=== PATIENT | female | born 1990 | race Hispanic/Latino ===

== ENCOUNTER 2018-06-08 18:29 | Emergency (ER) | payer OTHER ==
[2018-06-08 19:19] VITALS: RESP 18; TEMP 98.2
[2018-06-08 19:20] VITALS: O2SAT 100
[2018-06-08] MEDS ORDERED: Tdap Vaccine 0.5 ml Vial (10-64 yrs) IM ONE ×2 (19:41→20:10)
--- NOTE | 2018-06-08 20:54 | ED PDOC ---
HPI: Head Injury Time Seen by Provider: 06/08/18 19:25 Chief Complaint (Nursing): Dizziness/Lightheaded Chief Complaint (Provider): head injury Additional Complaint(s): Fell down stairs yesterday around 9pm. Injured bilateral forearms/elbows and thinks she hit head. Having poor concentration, headache, lightheadedness, feeling "in a fog", photophobia today. PMD Priamini Past Medical History Reviewed: Historical Data, Nursing Documentation, Vital Signs Vital Signs: Last Vital Signs Temp 98.2 F 06/08/18 19:13 Pulse 68 06/08/18 19:13 Resp 18 06/08/18 19:13 BP 120/82 06/08/18 19:13 Pulse Ox 100 06/08/18 19:13 - Medical History PMH: No Chronic Diseases - Surgical History Surgical History: Appendectomy - Family History Family History: States: No Known Family Hx - Social History Current smoker - smoking cessation education provided: Yes Alcohol: Social - Allergies Allergies/Adverse Reactions: Allergies Allergy/AdvReac Type Severity Reaction Status Date / Time No Known Allergies Allergy Verified 06/08/18 19:13 Review of Systems ROS Statement: Except As Marked, All Systems Reviewed And Found Negative (and as per HPI) Constitutional: Positive for: Malaise Cardiovascular: Positive for: Light Headedness Gastrointestinal: Negative for: Nausea Musculoskeletal: Negative for: Neck Pain Neurological: Positive for: Confusion, Headache, Dizziness. Negative for: Numbness, Incoordination, Change in Speech Physical Exam - Reviewed Nursing Documentation Reviewed: Yes Vital Signs Reviewed: Yes - Physical Exam Appears: Positive for: Non-toxic, No Acute Distress Head Exam: Positive for: ATRAUMATIC, NORMOCEPHALIC Skin: Positive for: Warm, Dry Eye Exam: Positive for: EOMI, PERRL. Negative for: Nystagmus ENT: Positive for: Pharynx Is (clear) Neck: Positive for: Painless ROM, Supple Cardiovascular/Chest: Positive for: Regular Rate, Rhythm. Negative for: Murmur Respiratory: Positive for: Normal Breath Sounds. Negative for: Wheezing Gastrointestinal/Abdominal: Positive for: Soft. Negative for: Tenderness Back: Positive for: Normal Inspection. Negative for: Decreased ROM Extremity: Positive for: Normal ROM. 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 Negative for: Motor/Sensory Deficits - ECG O2 Sat by Pulse Oximetry: 100 - Progress ED Course And Treament: EXAM: CT Head without Intravenous Contrast. CLINICAL HISTORY: DIZZ/HEADACHE TRAUMA TECHNIQUE: Axial computed tomography images of the head/brain without intravenous contrast. 824.30 mGy-cm COMPARISON: None provided. FINDINGS: BRAIN No acute intraparenchymal hemorrhage. No mass lesion. No CT evidence for acute territorial infarct. No midline shift or extra-axial collections. VENTRICLES: No hydrocephalus. ORBITS: The orbits are unremarkable. SINUSES AND MASTOIDS: Mild inflammatory changes ethmoid sinuses. BONES: No fracture. SOFT TISSUES: Unremarkable. IMPRESSION: No acute intracranial abnormality. Electronically signed on Jun 08, 2018 8:53:21 PM EST by: Shlomo Wilkes M.D., Certified by [facility], Diagnostic Radiology Disposition - Clinical Impression Clinical Impression: Concussion Counseled Patient/Family Regarding: Studies Performed, Diagnosis, Need For Followup - Disposition Referrals: Lyubov Lopez MD [Medical Doctor] - (FOLLOW UP WITH DR LOPEZ IN A WEEK) Disposition: Routine/Home Disposition Time: 21:02 Condition: STABLE Instructions: Concussion, Adult (DC) Forms: [facility] ED School/Work Excuse
[2018-06-08 21:19] VITALS: BP 124/67; PULSE 70
--- NOTE | 2018-06-09 11:06 | CT ---
Date of service: 06/08/2018 PROCEDURE: CT HEAD WITHOUT CONTRAST. HISTORY: dizzy headache trauma COMPARISON: Not available TECHNIQUE: Axial computed tomography images were obtained through the head/brain without intravenous contrast. Radiation dose: Total exam DLP = 824.3 mGy-cm. This CT exam was performed using one or more of the following dose reduction techniques: Automated exposure control, adjustment of the mA and/or kV according to patient size, and/or use of iterative reconstruction technique. FINDINGS: HEMORRHAGE: No intracranial hemorrhage. BRAIN: No mass effect or edema. No atrophy or chronic microvascular ischemic changes. VENTRICLES: Unremarkable. No hydrocephalus. CALVARIUM: Unremarkable. PARANASAL SINUSES: Chronic ethmoid and sphenoid sinusitis. Hypoplastic frontal sinuses. MASTOID AIR CELLS: Unremarkable as visualized. No inflammatory changes. OTHER FINDINGS: None. IMPRESSION: No intracranial mass, hemorrhage or evidence of acute infarct. Chronic ethmoid and sphenoid sinusitis. Otherwise unremarkable. The preliminary findings for this examination were reported by [facility] Radiology at 8:53 p.m. on 06/08/2018. There is concurrence of this report with the preliminary findings.
== END 2018-06-08 21:18 | disposition home or self-care (01) ==
LOC: H.ER 18:29
DX: S06.0X0A Concussion without loss of consciousness, initial encounter (principal); F17.200 Nicotine dependence, unspecified, uncomplicated; J32.2 Chronic ethmoidal sinusitis; J32.3 Chronic sphenoidal sinusitis; W10.9XXA Fall (on) (from) unspecified stairs and steps, initial encounter; Z23 Encounter for immunization